=== PATIENT | female | born 2000 | race Caucasian/White ===

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

== ENCOUNTER 2020-01-22 17:17 | Emergency (ER) | payer OTHER ==
[2020-01-22] MEDS ORDERED: Sodium Chloride 0.9% 1,000 ML IV ONE (17:33)
[2020-01-22] MEDS ORDERED: Sodium Chloride 0.9% 10 ML Syringe FLUSH PRN (17:33)
[2020-01-22] MEDS ORDERED: Ondansetron 4 MG/2 ML SDV IVPUSH ONE (17:33)
--- NOTE | 2020-01-22 17:39 | EDM.PDOC ---
<Rae Vivar - Last Filed: 01/22/20 18:42> ED HPI GENERAL MEDICAL PROBLEM - General Chief Complaint: General Stated Complaint: STOMACH PAIN Time Seen by Provider: 01/22/20 17:20 Source of Information: Reports: Patient History Limitations: Reports: No Limitations - History of Present Illness INITIAL COMMENTS - FREE TEXT/NARRATIVE: Patient comes into the emergency department with complaints of abdominal cramping. Patient states that abdominal cramping started after she had a prime rib that was Undercooked last evening. She also had a potato salad/macaroni salad that was not kept on ice. Patient states approximately 1 hour after eating she became ill. She states that she had significant amount of abdominal cramping with nausea. She ended up throwing up one time and states that the abdominal cramping has continued. Patient denies any fever, chest pain, dizziness, lightheadedness, loss of taste or smell, shortness of breath, concerns, or peripheral edema. Patient states she does feel better if she is lying down and not thinking about it however she gets up and moves or tries to eat anything she is extremely nauseated. She has been able to keep cereal down approximately 2 hours ago without vomiting. She just wanted to have a further evaluation regarding this. Patient states that she is not for she has a Nexplanon implantable device in her arm. Patient denies any recent COVID-19 exposure or symptoms she also has not been tested positive. Onset: Gradual Duration: Constant Location: Reports: Abdomen Quality: Reports: Other (cramping ) Severity: Moderate Improves with: Reports: Rest Worsens with: Reports: Movement Context: Reports: Other Associated Symptoms: Reports: No Other Symptoms Treatments RISK CONTROL ANALYST: Reports: Other (see below) (none ) Abdomen Pain Score (Numeric/FACES): 5 - Related Data Allergies Allergy/AdvReac Type Severity Reaction Status Date / Time No Known Drug Allergies Allergy Other Verified 01/22/20 17:52 Home Meds: Home Meds Levothyroxine Sodium [Synthroid] 200 mcg PO ACBRK 01/08/14 [History] Ondansetron [Zofran ODT] 4 mg PO Q6H PRN #20 tab.dis 01/22/20 [Rx] Past Medical History - Past Health History Medical/Surgical History: Denies Medical/Surgical History Psychiatric History: Reports: Anxiety, Depression Endocrine/Metabolic History: Reports: Other (See Below) Other Endocrine/Metabolic History: Graves disease and thyroid crisis - Past Surgical History Endocrine Surgical History: Reports: Thyroidectomy Other Endocrine Surgeries/Procedures: radiation Social & Family History - Family History Family Medical History: Noncontributory - Caffeine Use Caffeine Use: Reports: Soda - Living Situation & Occupation Living situation: Reports: Single, with Family Occupation: Student ED ROS GENERAL - Review of Systems Review Of Systems: Comprehensive ROS is negative, except as noted in HPI. Constitutional: Reports: No Symptoms HEENT: Reports: No Symptoms Respiratory: Reports: No Symptoms Cardiovascular: Reports: No Symptoms Endocrine: Reports: No Symptoms : Reports: No Symptoms Musculoskeletal: Reports: No Symptoms Skin: Reports: No Symptoms Neurological: Reports: No Symptoms Psychiatric: Reports: No Symptoms Hematologic/Lymphatic: Reports: No Symptoms Immunologic: Reports: No Symptoms ED EXAM, GENERAL - Physical Exam Exam: See Below Exam Limited By: No Limitations General Appearance: Alert, WD/WN, No Apparent Distress Head: Atraumatic, Normocephalic Neck: Normal Inspection, Supple, Non-Tender, Full Range of Motion Respiratory/Chest: No Respiratory Distress, Lungs Clear, Normal Breath Sounds, No Accessory Muscle Use, Chest Non-Tender Cardiovascular: Normal Peripheral Pulses, Regular Rate, Rhythm Peripheral Pulses: 4+: Radial (L), Radial (R), Dorsalis Pedis (L), Dorsalis Pedis (R) GI/Abdominal: Normal Bowel Sounds, Soft, Non-Tender, No Organomegaly, No Distention, No Abnormal Bruit, No Mass Back Exam: Normal Inspection, Full Range of Motion Extremities: Normal Inspection, Normal Range of Motion, Non-Tender, No Pedal Edema, Normal Capillary Refill Neurological: Alert, Oriented, CN II-XII Intact, Normal Gait Psychiatric: Normal Affect, Normal Mood Skin Exam: Warm, Dry, Intact, Normal Color Departure - Departure Disposition: Home, Self-Care 01 Condition: Good Clinical Impression: Gastritis Qualifiers: Gastritis type: unspecified gastritis Chronicity: acute Gastritis bleeding: without bleeding Qualified Code(s): K29.00 - Acute gastritis without bleeding - Discharge Information *PRESCRIPTION DRUG MONITORING PROGRAM REVIEWED*: Not Applicable *COPY OF PRESCRIPTION DRUG MONITORING REPORT IN PATIENT BRY: Not Applicable Prescriptions: Ondansetron [Zofran ODT] 4 mg PO Q6H PRN #20 tab.dis PRN Reason: Nausea Instructions: Gastritis, Adult, [id number] Referrals: Rocael Conde MD [Primary Care Provider] - Forms: ED Department Discharge Additional Instructions: 1. rest 2. increase your water intake eat clear liquids tonight and things like jellow and then increase your food intake slowly and with bland items to start 3. Continue all at home medications 4. Activity and diet as tolerated 5. Can take over the counter Tylenol for any pain or discomfort 6. Follow up with PCP if symptoms continue, return, or progress 7. Call with any questions or concerns 8. May use zofran as needed for nausea 9. Tylenol and advil as directed may be used for pain - Assessment/Plan Assessment:: 1. abdominal pain Plan: 1. IV initiated in the emergency department 2. IV fluids provided- 1 L saline given 3. Zofran given in the ER to help with nausea 4. Patient was doing better for a short period of time. However, then began to experience significant amount of pain again. Ordered a CT scan, Toradol, and Labs. 5. Report given to Dr. Reyna who will assume care. <Jewels Reyna - Last Filed: 01/23/20 16:31> ED HPI GENERAL MEDICAL PROBLEM - History of Present Illness INITIAL COMMENTS - FREE TEXT/NARRATIVE: Patient prior to discharge began having generalized cramping so lab and CT initiated by ER provider. She got a dose of IV Toradol and informed me her pain was gone while I notified her of normal labs but awaiting CT and Urine results. Has had a period last month and shows me her Nexplanon from August. She has a child. returned negative and urine showed moderate blood and large ketones. NO vomiting while in ER did get IV Zofran. Had a BM prior to arrival which was mostly normal and no blood. ED EXAM, GENERAL - Physical Exam Exam: See Below Back Exam: No: CVA Tenderness (L), CVA Tenderness (R) Course - Vital Signs Last Recorded V/S: Last Vital Signs Temp 98.1 F 01/22/20 19:22 Pulse 78 01/22/20 19:22 Resp 18 01/22/20 19:22 BP 119/87 01/22/20 19:22 Pulse Ox 100 01/22/20 19:22 - Orders/Labs/Meds Orders: Active Orders 24 hr Category Date Time Status Peripheral IV Insertion Adult [OM.PC] Stat Oth 01/22/20 17:33 Ordered Labs: Laboratory Tests 01/22/20 01/22/20 01/22/20 Range/Units 18:40 18:40 18:40 WBC 10.0 (4.0-10.0) x10^3/uL RBC 4.02 (4.00-5.50) x10^6/uL Hgb 10.8 L D (12.0-16.0) g/dL Hct 32.2 L (33.0-47.0) % MCV 80.1 D (78.0-93.0) fL MCH 26.9 (26.0-32.0) pg MCHC 33.5 (32.0-36.0) g/dL RDW Coeff of Sara 12.6 (10.0-15.0) % Plt Count 281 (130-400) x10^3/uL Neut % (Auto) 78.3 (50.0-80.0) % Lymph % (Auto) 14.4 L (25.0-50.0) % Luce % (Auto) 5.1 (2.0-11.0) % Eos % (Auto) 2.1 (0.0-4.0) % Baso % (Auto) 0.1 L (0.2-1.2) % Sodium 139 (136-145) mmol/L Potassium 3.5 (3.5-5.1) mmol/L Chloride 106 (98-107) mmol/L Carbon Dioxide 25 (21-32) mmol/L Anion Gap 11.5 (10-20) mmol/L BUN 17 (7-18) mg/dL Creatinine 0.7 (0.55-1.02) mg/dL Est Cr Clr Drug Dosing TNP Estimated GFR (MDRD) > 60 Glucose 109 H (74-106) mg/dL Calcium 8.1 L (8.5-10.1) mg/dL Corrected Calcium 8.66 (8.5-10.1) mg/dL Total Bilirubin 0.3 (0.2-1.0) mg/dL AST 18 (15-37) U/L ALT 35 (14-59) U/L Alkaline Phosphatase 65 (46-116) U/L Total Protein 6.7 (6.4-8.2) g/dL Albumin 3.3 L (3.4-5.0) g/dL Globulin 3.4 Albumin/Globulin Ratio 0.97 Lipase 104 (73-393) U/L Urine Color (YELLOW) POC Urine Appearance (CLEAR) POC Urine pH (5.0-8.0) Ur Specific [place] (1.005-1.030) POC Urine Protein (NEGATIVE) POC Ur Glucose (UA) (NEGATIVE) POC Urine Ketones (NEGATIVE) POC Ur Occult Blood (NEGATIVE) POC Urine Nitrite (NEGATIVE) POC Urine Bilirubin (NEGATIVE) POC Urine Urobilinogen (0.2) POC U Leukocyte Esteras (NEGATIVE) Urine RBC (NOT SEEN) /HPF Urine WBC (NOT SEEN) /HPF Ur Squamous Epith Cells (NOT SEEN) /HPF Urine Bacteria (NOT SEEN) Urine Mucus (NOT SEEN) POC Urine HCG, Qual (NEGATIVE) 01/22/20 Range/Units 19:50 WBC (4.0-10.0) x10^3/uL RBC (4.00-5.50) x10^6/uL Hgb (12.0-16.0) g/dL Hct (33.0-47.0) % MCV (78.0-93.0) fL MCH (26.0-32.0) pg MCHC (32.0-36.0) g/dL RDW Coeff of Sara (10.0-15.0) % Plt Count (130-400) x10^3/uL Neut % (Auto) (50.0-80.0) % Lymph % (Auto) (25.0-50.0) % Luce % (Auto) (2.0-11.0) % Eos % (Auto) (0.0-4.0) % Baso % (Auto) (0.2-1.2) % Sodium (136-145) mmol/L Potassium (3.5-5.1) mmol/L Chloride (98-107) mmol/L Carbon Dioxide (21-32) mmol/L Anion Gap (10-20) mmol/L BUN (7-18) mg/dL Creatinine (0.55-1.02) mg/dL Est Cr Clr Drug Dosing Estimated GFR (MDRD) Glucose (74-106) mg/dL Calcium (8.5-10.1) mg/dL Corrected Calcium (8.5-10.1) mg/dL Total Bilirubin (0.2-1.0) mg/dL AST (15-37) U/L ALT (14-59) U/L Alkaline Phosphatase (46-116) U/L Total Protein (6.4-8.2) g/dL Albumin (3.4-5.0) g/dL Globulin Albumin/Globulin Ratio Lipase (73-393) U/L Urine Color Yellow (YELLOW) POC Urine Appearance Slightly cloudy H (CLEAR) POC Urine pH 6.5 (5.0-8.0) Ur Specific [place] 1.020 (1.005-1.030) POC Urine Protein Negative (NEGATIVE) POC Ur Glucose (UA) Negative (NEGATIVE) POC Urine Ketones 80 H (NEGATIVE) POC Ur Occult Blood Moderate H (NEGATIVE) POC Urine Nitrite Negative (NEGATIVE) POC Urine Bilirubin Negative (NEGATIVE) POC Urine Urobilinogen 0.2 (0.2) POC U Leukocyte Esteras Negative (NEGATIVE) Urine RBC 0-5 (NOT SEEN) /HPF Urine WBC Not seen (NOT SEEN) /HPF Ur Squamous Epith Cells Few H (NOT SEEN) /HPF Urine Bacteria Not seen (NOT SEEN) Urine Mucus Few H (NOT SEEN) POC Urine HCG, Qual Negative (NEGATIVE) Meds: Medications Discontinued Medications Generic Name Dose Route Start Last Admin Trade Name Freq PRN Reason Stop Dose Admin Sodium Chloride 1,000 mls @ 1,000 mls/hr 01/22/20 17:33 01/22/20 17:43 Normal Saline IV 01/22/20 18:32 1,000 mls/hr ONETIME ONE Administration Ketorolac Tromethamine 30 mg 01/22/20 18:32 01/22/20 19:18 Toradol IVPUSH 01/22/20 18:33 30 mg ONETIME ONE Administration Ondansetron HCl 4 mg 01/22/20 17:33 01/22/20 17:43 Zofran IVPUSH 01/22/20 17:34 4 mg ONETIME ONE Administration Ondansetron HCl 2 packet 01/22/20 20:10 Take Home: Ondansetron Odt 4 Mg, 2 Tab Pack PO 01/22/20 20:11 ONETIME ONE Sodium Chloride 10 ml 10/18/20 17:33 Saline Flush FLUSH ASDIRECTED PRN Keep Vein Open Departure - Departure Time of Disposition: 19:30 - Problem List & Annotations (1) Abdominal pain SNOMED Code(s): 11117003 Code(s): R10.9 - UNSPECIFIED ABDOMINAL PAIN Status: Acute Priority: High Qualifiers: Abdominal location: generalized Qualified Code(s): R10.84 - Generalized abdominal pain (2) Mesenteric adenitis SNOMED Code(s): 55103078 Code(s): I88.0 - NONSPECIFIC MESENTERIC LYMPHADENITIS Status: Acute Priority: High - Problem List Review Problem List Initiated/Reviewed/Updated: Yes - Assessment/Plan Admission H&P: Please use this note as an admission H&P Plan: Patient informed that CT showed mesenteric adenitis usually a self limited condition Discharge instructions given to stay hydrated and use zofran if needed for nausea May use tylenol or advil for pain says pain is ok now but worse when she gets up and moves Urine did show moderate blood and ketones discussed that was likely from her current condition. Vitals reviewed and excellent. Patient encouraged to follow up in the clinic if symptoms failed to improve.
[2020-01-22] MEDS ORDERED: Ketorolac 30 MG/ML SDV IVPUSH ONE (18:32)
[2020-01-22 19:04] LABS: ANION GAP 11.5 mmol/L (10-20); CHLORIDE,CL 106 mmol/L (98-107); SODIUM,NA 139 mmol/L (136-145)
--- NOTE | 2020-01-22 19:14 | CT ---
[id number] CT/CT Abdomen Pelvis WO IV EXAM: CT Abdomen Pelvis WO IV CLINICAL DATA: ABDOMEN PAIN. COMPARISON STUDY: None. FINDINGS: Lung bases are clear. Liver, spleen, gallbladder, pancreas, adrenal glands, and kidneys are unremarkable. No bowel obstruction or inflammation. The appendix is not well-visualized. There are numerous prominent mesenteric lymph nodes most pronounced within the right lower quadrant. No free fluid, or pneumoperitoneum. Bilateral adnexal cysts. Largest cyst is on the left measuring up to 4.1 cm. Scattered changes of spondylosis the spine. No fracture or osseous lesion. IMPRESSION: 1. The appendix is not well-visualized. There are multiple prominent mesenteric lymph nodes especially within the right lower quadrant. Findings could be seen with mesenteric adenitis. 2. Bilateral adnexal cysts. Largest cyst is on the left measuring up to 4.1 cm. Ezio Gao DO 01/22/20 1913 Thank you for allowing us to participate in the care of your patient.
[2020-01-22 19:22] VITALS: BP 119/87; PULSE 78
[2020-01-22] MEDS ORDERED: Take Home: Ondansetron 4 MG Tab.DIS, 2 Tab Pack PO ONE (20:10)
== END 2020-01-22 20:20 | disposition home or self-care (01) ==
LOC: VM.ED 17:17
DX: K29.00 Acute gastritis without bleeding (principal); I88.0 Nonspecific mesenteric lymphadenitis; Z79.899 Other long term (current) drug therapy
CPT/HCPCS: 36415; 74176; 80053; 81001; 81002; 81015; 81025; 83690; 85025; 96374; 96375; 99284; 99284-25; J1885; J2405; J7030

== ENCOUNTER 2020-06-27 17:57 | Emergency (ER) | payer OTHER ==
[2020-06-27] MEDS ORDERED: Amoxicillin/Clavulanate K 875-125 MG Tab PO ONE (18:46)
--- NOTE | 2020-06-27 18:53 | EDM.PDOC ---
ED HPI GENERAL MEDICAL PROBLEM - General Chief Complaint: Bite:Animal, Insect Stated Complaint: DOG BITE Time Seen by Provider: 06/27/20 18:00 Source of Information: Reports: Patient History Limitations: Reports: No Limitations - History of Present Illness INITIAL COMMENTS - FREE TEXT/NARRATIVE: Patient comes emergency department today with concerns of a dog bite to her lower extremities. Approximately half an hour prior to arrival the patient was in the park when a dog of another person who is unvaccinated unprovoked came up to her and better twice in the lower extremities. Once in the left lower lateral extremity and once in the right lower mid tib-fib region. She noticed that there were 2 small puncture wounds. She did not washes prior to arrival. She had her last tetanus immunization about 2 years ago when she was with her daughter. The dog that bit her was identified with the silk examiner and the police were summoned. It was verified that the dog does not have any vaccinations and is 8 years old. Patient denies any complaints or other injuries at this time. No Covid exposure no Covid symptoms. Bilateral Leg Pain Score (Numeric/FACES): 2 - Related Data Allergies Allergy/AdvReac Type Severity Reaction Status Date / Time No Known Drug Allergies Allergy Other Verified 01/22/20 17:52 Home Meds: Home Meds Levothyroxine Sodium [Synthroid] 200 mcg PO ACBRK 01/08/14 [History] Ondansetron [Zofran ODT] 4 mg PO Q6H PRN #20 tab.dis 01/22/20 [Rx] Amoxicillin/Potassium Clav [Augmentin 875-125 Tablet] 1 each PO BID #10 tablet 06/27/20 [Rx] Past Medical History - Past Health History Medical/Surgical History: Denies Medical/Surgical History Psychiatric History: Reports: Anxiety, Depression Endocrine/Metabolic History: Reports: Other (See Below) Other Endocrine/Metabolic History: Graves disease and thyroid crisis - Past Surgical History Endocrine Surgical History: Reports: Thyroidectomy Other Endocrine Surgeries/Procedures: radiation Social & Family History - Family History Family Medical History: No Pertinent Family History - Tobacco Use Tobacco Use Status *Q: Never Tobacco User - Caffeine Use Caffeine Use: Reports: Soda - Recreational Drug Use Recreational Drug Use: No - Living Situation & Occupation Living situation: Reports: Single, with Family Occupation: Student ED ROS GENERAL - Review of Systems Review Of Systems: Comprehensive ROS is negative, except as noted in HPI. ED EXAM, ANIMAL BITE - Physical Exam Exam: See Below Exam Limited By: No Limitations General Appearance: Alert, WD/WN, No Apparent Distress Respiratory/Chest: No Respiratory Distress Cardiovascular: Normal Peripheral Pulses Peripheral Pulses: 2+: Posterior Tibial (L), Posterior Tibial (R), Dorsalis Pedis (L), Dorsalis Pedis (R) Extremities: Other (very similar puncture wound without any other pathology. CMS intact appropriately. ). No: Normal Inspection (Examination of the lower extremities. Just above the left lateral malleolus there is a small puncture wound with an abrasion next to it. Rest of the left lower extremity is atraumatic and has normal CMS. On the right lower tib-fib region on the medial mid aspect of the calf there is a similar [place]) Neurological: Alert, Oriented Psychiatric: Normal Affect, Normal Mood Skin Exam: Normal Color, Warm/Dry Course - Vital Signs Last Recorded V/S: Last Vital Signs Temp 98.5 F 06/27/20 18:00 Pulse Resp BP Pulse Ox - Orders/Labs/Meds Meds: Medications Discontinued Medications Generic Name Dose Route Start Last Admin Trade Name Judsonq PRN Reason Stop Dose Admin Amoxicillin/Clavulanate Potassium 1 tab 06/27/20 18:46 06/27/20 19:21 Amoxicillin/Clavulanate K 875-125 Mg Tab PO 06/27/20 18:47 1 tab ONETIME ONE Administration - Re-Assessments/Exams Free Text/Narrative Re-Assessment/Exam: Patients tetanus is up to date. He was given a dose of Augmentin for prophylaxis of infection. I had a rather long discussion with her about the options for rabies vaccination. I did review the rabies postexposure prophylaxis guideline and up-to-date. As the dog is known to the police as well as the silk examiner. Patient has chosen to hold off on rabies vaccination at this time and do the 10 days of observation. If the dog while in quarantine develops any illnesses whatsoever t he patient will immediately receive rabies vaccination. I did offer the opportunity for her to start the rabies vaccine today and we can discontinue it if the dog does not develop any illness and she declines at this time. She is understanding of these risk. She is comfortable with this plan and her questions are answered. Departure - Departure Time of Disposition: 18:48 Disposition: Home, Self-Care 01 Clinical Impression: Dog bite of extremity - Discharge Information Prescriptions: Amoxicillin/Potassium Clav [Augmentin 875-125 Tablet] 1 each PO BID #10 tablet Instructions: Animal Bite, Adult, [id number], Antibiotic Medicine, Adult, [id number], Pain Medicine Instructions, [id number] Referrals: Nancy Rodríguez MD [Primary Care Provider] - Forms: ED Department Discharge Additional Instructions: Cleanse wound twice daily with soap and water Bacitracin and bandage until healed. Augmentin 1 tablet twice daily for the next 5 days. First dose given in the ED and RX sent to [facility]. Watch for signs of infection. The police have been contacted and the dog will be quarantined for 10 days. Follow up with them as much as needed. If the dog becomes ill with any new symptoms you must get your Rabies vaccine started as soon as possible. Return to the ED if new or worsening symptoms. Follow up with PCP if any concerns. Sepsis Event Note (ED) - Evaluation Sepsis Screening Result: No Definite Risk - Focused Exam Vital Signs: Vital Signs Temp 06/27/20 18:00 98.5 F
== END 2020-06-27 19:20 | disposition home or self-care (01) ==
LOC: VM.ED 17:57
DX: S81.852A Open bite, left lower leg, initial encounter (principal); S81.851A Open bite, right lower leg, initial encounter; E05.00 Thyrotoxicosis with diffuse goiter without thyrotoxic crisis or storm; Z79.899 Other long term (current) drug therapy; W54.0XXA Bitten by dog, initial encounter; Y92.830 Public park as the place of occurrence of the external cause
CPT/HCPCS: 99283; A9270-GY

== ENCOUNTER 2021-05-09 09:07 | Day surgery (SDC) | payer OTHER ==
[2021-05-09] MEDS: Lactated Ringers 1,000 ML IV SCH (09:26)
[2021-05-09] MEDS ORDERED: Propofol 200 MG/20 ML SDV ONE ×3 (10:50→12:11)
[2021-05-09] MEDS ORDERED: fentaNYL 100 MCG/2 ML SDV ONE (10:50)
[2021-05-09 13:09] VITALS: BP 96/48; PULSE 70
== END 2021-05-09 14:15 | disposition home or self-care (01) ==
LOC: VM.SDS 09:07
PROVIDERS: ATTEND Family Medicine
DX: K52.9 Noninfective gastroenteritis and colitis, unspecified (principal); E05.90 Thyrotoxicosis, unspecified without thyrotoxic crisis or storm; F32.9 Major depressive disorder, single episode, unspecified; R00.0 Tachycardia, unspecified; Z83.79 Family history of other diseases of the digestive system; Z98.890 Other specified postprocedural states; Z79.899 Other long term (current) drug therapy
CPT/HCPCS: 00811; 81025; J2704; J3010; J7120